=== PATIENT | female | born 1990 | race Two or more races ===

== ENCOUNTER 2021-03-22 19:59 | Emergency (ER) | payer OTHER ==
[~2021-03-22] VITALS: Ht 165.1 cm; Wt 64.1 kg
--- NOTE | 2021-03-22 20:11 | PHYS DOC ---
General Adult HPI: HPI: ".. I am twelve weeks .. and I ve beehn having diarrhea and vomiting... " Patient is a 30 year old female who presents with above hx and complaints nausea, vomiting, diarrhea and 12 weeks gravid. Pt. follows with Dr. Mcnamara. Patient denies recent trauma. Patient denies any severe ill contacts. This is patient's fourth . She is para 2. 1 miscarriage. Patient has had diarrhea 8 times a day and 5-6 vomits today. 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 Patient up-to-date with vaccinations including Covid. Patient normally follows with Naima for care. No history of bad food intake. No history of trauma. Shahana brower does have a history of ovarian cyst. Review of Systems: Review of Systems: Constitutional: Denies fever or chills Eyes: Denies change in visual acuity HENT: Denies nasal congestion or sore throat Respiratory: Denies cough or shortness of breath Cardiovascular: Denies chest pain or edema GI: Planes of abdominal pain, nausea, vomiting, and diarrhea : Denies dysuria Musculoskeletal: Denies back pain or joint pain Integument: Denies rash Neurologic: Denies headache, focal weakness or sensory changes Endocrine: Denies polyuria or polydipsia Lymphatic: Denies swollen glands Psychiatric: Denies depression or anxiety Family History: Family History: Noncontributory to presentation. Current Medications: Current Meds: See nursing for home meds Allergies: Allergies: No known drug allergies Physical Exam: PE: Constitutional: Well developed, well nourished, no acute distress, non-toxic appearance. [] HENT: Normocephalic, atraumatic, bilateral external ears normal, oropharynx dry, no oral exudates, nose normal. [] Eyes: PERRLA, EOMI, conjunctiva normal, no discharge. [] Neck: Normal range of motion, no tenderness, supple, no stridor. [] Cardiovascular:Heart rate regular rhythm, no murmur [] Lungs & Thorax: Bilateral breath sounds clear to auscultation [] Abdomen: Bowel sounds hyperactive, soft, generalized tenderness, no masses, no pulsatile masses. Gravid. Patient denies any vaginal discharge or bleeding. Generalized pain but no focal rebound Skin: Warm, dry, no erythema, no rash. [] Back: No tenderness, no CVA tenderness. [] Extremities: No tenderness, no cyanosis, no clubbing, ROM intact, no edema. No psoas sign. Neurologic: Alert and oriented X 3, normal motor function, normal sensory func tion, no focal deficits noted. [] DTRs +2 patella and brachial. Psychologic: Affect anxious, judgement normal, mood normal. [] EKG: EKG: [] Radiology/Procedures: Radiology/Procedures: [][address] [id number] IMAGING REPORT Signed PATIENT: BI KEANE ACCOUNT: [id number] : 1990 LOCATION: ER AGE: 30 SEX: F EXAM STATUS: REG ER ORD. 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 12 weeks . TECHNIQUE: Grayscale, color and spectral Doppler ultrasound images of the pelvis via transabdominal and transvaginal approach. COMPARISON: None. FINDINGS: The uterus measures 9.7 x 9.6 x 9.3 cm. There is a gestational sac containing an embryo with crown-rump length of 5.2 cm consistent with gestational age 11 weeks 6 days. Sonographic EDC 10/05/2021. heart rate of 162 bpm. There is a yolk sac present. Right ovary measures 3.4 x 3.2 x 3.0 cm. Left ovary measures 2.5 x 2.2 x 1.0 cm. Normal ovarian blood flow bilaterally. There is a 2.4 cm anechoic simple cyst in the right ovary. There is a 2.6 cm anechoic cystic structure with no vascularity in the left adnexa, possibly a paraovarian cyst. IMPRESSION: 1. Single living intrauterine with gestational age by ultrasound 11 we eks 6 days. Sonographic EDC 10/05/2021. 2. There is a 2.4 cm simple right ovarian cyst. 3. There is a 2.6 cm simple appearing cyst in the left adnexa, possibly a paraovarian cyst. Electronically signed by: Tara Michelle MD (03/22/2021 11:31 PM) [facility] DICTATED AND SIGNED BY: TARA MICHELLE MD DATE: 03/22/21 4813 CC: MCKAYLA SANTIAGO MD; ELLA MCNAMARA MD ~MTH0 0 Heart Score: C/O Chest Pain: N/A Risk Factors: Risk Factors: DM, Current or recent (<one month) smoker, HTN, HLP, family history of CAD, obesity. Risk Scores: Score 0 - 3: 2.5% MACE over next 6 weeks - Discharge Home Score 4 - 6: 20.3% MACE over next 6 weeks - Admit for Clinical Observation Score 7 - 10: 72.7% MACE over next 6 weeks - Early Invasive Strategies Course & Med Decision Making: Course & Med Decision Making Pertinent Labs and Imaging studies reviewed. (See chart for details) Patient continue to push a small amount of fluid. Try ney candies or drinks to help with nausea. For marked nausea and vomiting may take Zofran 8 mg at 4 times a day. Follow-up pending cultures. Follow-up with primary care. Follow- up with [facility]. Continue vitamins. May take Tylenol for discomfort. Impression: 1. Hyperemesis gravidarum 2. Viral syndrome 3. Intrauterine approximately 11 weeks 6 days. 4. Bilateral ovarian cyst 2.4 on right 2.6 on left 5. Patient blood type is A+ 6. Beta-hCG is 101,094 7. Hemoglobin 13.8 8. Mild dehydration [] Dragon Disclaimer: Dragon Disclaimer: This electronic medical record was generated, in whole or in part, using a voice recognition dictation system. Departure Departure: Referrals: ELLA MCNAMARA MD (PCP) Scripts Ondansetron Hcl (ZOFRAN) 4 Mg Tablet 8 MG PO QIDPRN PRN for nv, #30 TAB Prov: MCKAYLA SANTIAGO MD 03/23/21 Dragon Disclaimer This chart was dictated in whole or in part using Voice Recognition software in a busy, high-work load, and often noisy Emergency Department environment. It may contain unintended and wholly unrecognized errors or omissions. Dragon Disclaimer This chart was dictated in whole or in part using Voice Recognition software in a busy, high-work load, and often noisy Emergency Department environment. It may contain unintended and wholly unrecognized errors or omissions. MCKAYLA SANTIAGO MD Mar 22, 2021 20:11
[2021-03-22] MEDS ORDERED: oxyCODONE/APAP 5/325 1 TAB TABLET PO ONE (20:30)
[2021-03-22] MEDS ORDERED: IV RINGERS SOLUTION,LACTATED 1,000 ML IV SCH (20:30)
[2021-03-22] MEDS ORDERED: FAMOTIDINE 20 MG/2 ML VIAL IVP ONE (20:30)
[2021-03-22] MEDS ORDERED: ONDANSETRON PF 4 MG/2 ML VIAL. IVP ONE (20:30)
[2021-03-22 21:14] LABS: BASO % 0 % (0-3); EOS % 0 % (0-3); HEMOGLOBIN 13.8 g/dL (12.0-15.5); LYMPH # 0.5 x10^3/uL (1.0-4.8); LYMPH % 8 % (24-48); MEAN CORPUSCULAR HEMOGLOBIN 28 pg (25-35); MEAN CORPUSCULAR HGB CONC 34 g/dL (31-37); MEAN CORPUSCULAR VOLUME 84 fL (79-100); MONO # 0.4 x10^3/uL (0.0-1.1); MONO % 6 % (0-9); NEUT # 5.1 x10^3uL (1.8-7.7); NEUT % 85 % (31-73); PLATELET COUNT 189 x10^3/uL (140-400); RED CELL DISTRIBUTION WIDTH 14.4 % (11.5-14.5); WHITE BLOOD COUNT 5.9 x10^3/uL (4.0-11.0)
[2021-03-22 21:21] LABS: CALCIUM 9.4 mg/dL (8.5-10.1); CREATININE 0.5 mg/dL (0.6-1.0); GFR 146.9; POTASSIUM 3.6 mmol/L (3.5-5.1)
[2021-03-22 21:26] LABS: ALBUMIN 3.4 g/dL (3.4-5.0); DIRECT BILIRUBIN 0.1 mg/dL (0.0-0.2); TOTAL BILIRUBIN 0.5 mg/dL (0.2-1.0); TOTAL PROTEIN 7.5 g/dL (6.4-8.2)
[2021-03-22 21:40] LABS: BACTERIA,URINE MOD /HPF (0-FEW); BILIRUBIN,URINE SMALL (NEG); CLARITY,URINE CLEAR; COLOR,URINE YELLOW; GLUCOSE,URINE NEG (NEG); NITRITE,URINE NEG (NEG); SQUAMOUS EPITHELIAL CELL,UR MANY /LPF; UROBILINOGEN,URINE 0.2 mg/dL (0.2 mg/dL)
[2021-03-22 21:48] LABS: INFLUENZA A PATIENT NEGATIVE (NEGATIVE); INFLUENZA B PATIENT NEGATIVE (NEGATIVE)
--- NOTE | 2021-03-22 23:34 | RAD ---
EXAMINATION: US OB <14 WKS +TV, 03/22/2021 9:50 PM CLINICAL INDICATION: Nausea and vomiting, pain, history of ovarian cysts. 12 weeks . TECHNIQUE: Grayscale, color and spectral Doppler ultrasound images of the pelvis via transabdominal a nd transvaginal approach. COMPARISON: None. FINDINGS: The uterus measures 9.7 x 9.6 x 9.3 cm. There is a gestational sac containing an embryo with crown-ru mp length of 5.2 cm consistent with gestational age 11 weeks 6 days. Sonographic EDC 10/05/2021. heart rate of 162 bpm. There is a yolk sac present. Right ovary measures 3.4 x 3.2 x 3.0 cm. Left ovary measures 2.5 x 2.2 x 1.0 cm. Normal ovarian blood flow bilaterally. There is a 2.4 cm anechoic simple cyst in the right ovary. There is a 2.6 cm anech oic cystic structure with no vascularity in the left adnexa, possibly a paraovarian cyst. IMPRESSION: 1. Single living intrauterine with gestational age by ultrasound 11 weeks 6 days. Sonograph ic EDC 10/05/2021. 2. There is a 2.4 cm simple right ovarian cyst. 3. There is a 2.6 cm simple appearing cyst in the left adnexa, possibly a paraovarian cyst. Electronically signed by: Tara Michelle MD (03/22/2021 11:31 PM) [facility]
[2021-03-23] MEDS ORDERED: ONDA4TAB7 PO (00:17)
[2021-03-23 00:40] VITALS: BP 124/71
== END 2021-03-23 00:47 | disposition home or self-care (01) ==
LOC: ER 19:59
DX: O21.0 Mild hyperemesis gravidarum (principal); O98.511 Other viral diseases complicating pregnancy, first trimester; B34.9 Viral infection, unspecified; O34.81 Maternal care for other abnormalities of pelvic organs, first trimester; N83.202 Unspecified ovarian cyst, left side; O99.281 Endocrine, nutritional and metabolic diseases complicating pregnancy, first trimester; E86.0 Dehydration; Z20.822 Contact with and (suspected) exposure to COVID-19; Z3A.11 11 weeks gestation of pregnancy
CPT/HCPCS: 36415; 76801; 76817; 80048; 80076; 81001; 82150; 82550; 83690; 84484; 84702; 85025; 86900; 86901; 87086; 87804; 96361; 96374; 96375; 99284; C9803; J2405; J3490; J7120; U0003